=== PATIENT | female | born 1940 | race Caucasian/White ===

== ENCOUNTER 2021-09-08 10:09 | Observation (INO) | payer MEDICARE, BC, SELFPAY ==
[2021-09-08] VITALS (7 sets, daily range): BP systolic 135–151; BP diastolic 58–77; PULSE 69–81; RESP 16–21; TEMP 36–36.8; O2SAT 97–98
--- NOTE | 2021-09-08 | ECHO_ITS ---
Patient Info Name: Janis Osborne Age: 81 years : 1940 Gender: Female Ht: 64 in Wt: 145 lbs BSA: 1.73 m2 HR: 88 bpm BP: 149 / 77 mmHg Heart Rhythm: Paced Technical Quality: Good Exam Date: 09/08/2021 12:41 PM Exam Location: [facility] Room: 8[facility] Patient Status: Outpatient Admit Date: 09/08/2021 Staff Ordering Physician: Ivet Rebolledo MD Obedience Trainer: Chantelle Frye RDCS Attending Provider: Juliane Buck M.A., MD Referring Physician: Kesha REED; Exam Type: CA echo doppler color flow Study Info Indications - DYSPNEA ELEVATED BNP Complete two-dimensional, color flow and Doppler transthoracic echocardiogram is performed. Summary 1. Complete two-dimensional, color flow and Doppler transthoracic echocardiogram is performed. 2. Normal left ventricular size with moderate concentric left ventricular hypertrophy. Good systolic function of all segments with an ejection fraction of 60-65%. No segmental wall motion abnormalities. Grade 2 diastolic dysfunction is noted. 3. Left atrial chamber dimension is severely enlarged. 4. Right atrial chamber dimension is mildly enlarged. 5. There is mild aortic valve calcification without stenosis. 6. There is mild mitral valve regurgitation. 7. There is mild tricuspid valve regurgitation. 8. Moderate pulmonary hypertension, estimated pulmonary arterial systolic pressure is 52 mmHg. 9. Paced rhythm. Left Ventricle Left ventricular chamber dimension is normal. Left ventricular systolic function is normal, estimated at 60-65%. There is moderately increased left ventricular wall thickness. Left ventricular septal wall motion is normal. The left ventricular diastolic function is grade II diastolic dysfunction. Right Ventricle Right ventricular chamber dimension is normal. Right ventricular systolic function is normal. Linear artifact in right ventricle suggestive of catheter(s), pacemaker lead(s), or ICD lead(s). Left Atria Left atrial chamber dimension is severely enlarged. Right Atria Right atrial chamber dimension is mildly enlarged. Aortic Valve The aortic valve is trileaflet. There is no aortic valve sclerosis. There is no aortic valve stenosis. There is no aortic valve regurgitation. There is mild aortic valve calcification without stenosis. Pulmonic Valve The pulmonic valve is normal. There is no pulmonic valve stenosis. There is no pulmonic regurgitation. Mitral Valve The mitral valve has thickened leaflets. There is no mitral valve stenosis. There is mild mitral valve regurgitation. There is mild mitral valve calcification. Tricuspid Valve The tricuspid valve leaflets are normal. There is no significant tricuspid valve stenosis. There is mild tricuspid valve regurgitation. Moderate pulmonary hypertension, estimated pulmonary arterial systolic pressure is 52 mmHg. Pericardium/Pleural The pericardium appears normal. There is no pericardial effusion. Inferior Vena Cava Normal inferior vena cava with >50% collapse upon inspiration consistent with Empty right atrial pressure, 10 mmHg. Aorta The aortic root size at the sinus of Valsalva is normal. The prox ascending aorta size is normal. Left Ventricular Outflow Tract Name Value Normal LVOT 2D -------
--- NOTE | ~2021-09-08 | US_ITS ---
EXAMINATION: US abdomen limited EXAM DATE: 09/09/2021 09:20 INDICATION: Elevated liver function tests. TECHNIQUE: Multiple grayscale and Doppler images of the abdomen right upper quadrant were obtained (b y a technologist who performed the scan) and subsequently reviewed. There is no prior study for libra de la cruz. FINDINGS: The pancreatic head and body are normal in appearance. The pancreatic tail is not visualized. The l iver has normal echogenicity and contour. There are no focal liver lesions identified. There is no evidence of intrahepatic biliary duct dilation. Portal venous flow was seen in the hepatopedal, nor mal direction and has normal Doppler waveform. No right-sided hydronephrosis. Right renal cysts. Common bile duct measures 3 mm, which is normal. The gallbladder wall is borderline wall thickening, with expected amount of distention. No sonographic evidence of pericholecystic fluid. There is chol elithiasis. Technologist performing exam reports patient did not demonstrate sonographic Enriquez's s ign. Please note that this sign is less reliable in patients who have received pain medication. IMPRESSION: Borderline gallbladder wall thickness without additional suspicious findings. Differentia l diagnosis includes interstitial edema, chronic liver disease or chronic cholecystitis. Reviewed, dictated and finalized at location A. SERVICES COORDINATOR IMPRESSION: Borderline gallbladder wall thickness without additional suspicious findings. Differential diagnosis includes interstitial edema, chronic liver di sease or chronic cholecystitis.
--- NOTE | ~2021-09-08 | XR_ITS ---
XR chest 2V 09/08/2021 11:13 Indication: Shortness of breath Procedure: PA and lateral views of the chest Comparison: No prior studies for comparison. Findings: Borderline heart size. Pacemaker leads are in expected position. There is subsegmental atel ectasis of the left mid thorax. No focal air space disease, pulmonary edema, pleural effusion or susp ected pneumothorax. There is moderate thoracic spondylosis. No acute osseous abnormality. Impression: 1: Subsegmental atelectasis left midlung. Reviewed, dictated and finalized at location B. IGERATOR ROOM CLERK Impression: 1: Subsegmental atelectasis left midlung.
--- NOTE | 2021-09-08 10:18 | ED.SOB ---
HPI - SOB/Dyspnea General Chief Complaint: Shortness of Breath/Dyspnea Stated Complaint: SOB Time Seen by Provider: 09/08/21 10:18 Source: patient Mode of arrival: ambulatory Limitations: no limitations History of Present Illness HPI Narrative: Patient is an 81-year-old female with a history of atrial fibrillation, anticoagulated on Xarelto, hypertension, pacemaker, coronary artery disease, presenting for evaluation of shortness of breath. Patient states that she has had increasing shortness of breath over the past 4 days. Initially shortness of breath was only with exertion, has worsened over the past day. Patient denies any chest pain. She does report a chest heaviness. No neck pain, back pain, fever, chills, productive cough. No recent illnesses. No recent sick contacts. No rhinorrhea, congestion, sore throat. Patient reports bilateral lower extremity edema greater on the right when compared to the left. 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 Barrientos at [facility], has been reestablished with Dr. Zuluaga but has only seen this balloon design printer once and is looking to re establish at this point. Patient's pacemaker is a [employer]tr[employer] device. Related Data Home Medications Medication Instructions Recorded Confirmed glipizide 5 mg BID 09/08/21 latanoprost 1 drp DAILY 09/08/21 lisinopril 20 mg DAILY 09/08/21 metformin 500 mg BID 09/08/21 metoprolol tartrate 100 mg BID 09/08/21 pioglitazone 15 mg DAILY 09/08/21 rivaroxaban [Xarelto] 15 mg DAILY 09/08/21 simvastatin 10 mg DAILY 09/08/21 tramadol 50 mg PRN 09/08/21 Allergies Allergy/AdvReac Type Severity Reaction Status Date / Time No Known Allergies Allergy Verified 09/08/21 11:50 Review of Systems Review of Systems: CONSTITUTIONAL: Denies fever, chills, or sweats. EYES: Denies visual changes, redness, or discharge. ENT: Denies rhinorrhea, congestion, sore throat, or otalgia. CARDIOVASCULAR: Denies chest pain, reports chest heaviness, denies palpitations. Reports bilateral lower extremity edema RESPIRATORY: Reports shortness of breath, denies cough GASTROINTESTINAL: Denies abdominal pain, nausea, vomiting, or diarrhea. GENITOURINARY: Denies dysuria or hematuria. SKIN: Denies rash or itching. MUSCULOSKELETAL: Denies back pain, joint pain, or myalgia. NEUROLOGIC: Denies headache, numbness, or weakness. [facility] Social History Social History (Updated 09/08/21 @ 10:35 by Ivet Rebolledo MD) Smoking status: Never smoker Alcohol intake: never Substance use: never Gender identity (if verbalized by the patient): Female Exam Narrative: GENERAL: Awake, alert, conversant HEAD: Normocephalic, atraumatic. EYES: PERRLA and EOMI. ENT: Nares clear, no rhinorrhea or epistaxis. Mucous membranes moist. NECK: Supple. CHEST: No significant respiratory distress, patient is mildly tachypneic, able to speak in full sentences, does have to pause to take a deep breath throughout. No wheezing. No chest wall tenderness. HEART: Regular rate, sinus rhythm ABDOMEN:Non distended, non tender EXTREMITIES: Normal range of motion. Bilateral pitting edema 1+ to the mid shins, no calf tenderness, erythema, edema. SKIN: Warm, dry, no rash. NEURO:No focal deficits. 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 No other significant events. Patient is in atrial fibrillation. Vital Signs Vital signs: Vital Signs Temperature 36.4 C 09/08/21 10:13 Pulse Rate 81 09/08/21 10:13 Respiratory Rate 18 09/08/21 10:13 Blood Pressure 146/77 H 09/08/21 10:13 Pulse Oximetry 97 09/08/21 10:13 Temperature 36.4 C 09/08/21 10:13 Pulse Rate 69 09/08/21 11:49 Respiratory Rate 20 09/08/21 11:49 Blood Pressure 143/59 H 09/08/21 11:49 Pulse Oximetry 98 09/08/21 11:49 MDM - SOB/Dyspnea MDM Narrative Medical decision jean
--- NOTE | 2021-09-08 10:19 | ECG_ITS ---
Measurements Intervals [place] Rate: 89 P: [place]: 0 QRS: -11 QRSD: 82 T: 269 QT: 346 QTc: 423 Interpretive Statements ATRIAL FIBRILLATION VENTRICULAR PREMATURE COMPLEX CANNOT RULE OUT SEPTAL INFARCT, AGE INDETERMINATE CONSIDER INFERIOR INFARCT, AGE INDETERMINATE ST-T WAVE ABNORMALITY IN ANTEROLATERAL LEADS- CONSIDER ISCHEMIA BASELINE ARTIFACT- I, II, III, AVR, AVF, V6 ABNORMAL ECG Electronically Signed On 09-08-2021 11:20:41 GATE AGENT by Johnny Rodriguez D.O.
[2021-09-08 10:34] LABS: Basophils Absolute Auto 0.1 K/mm3 (0.0-0.1); Basophils Percent Auto 0.6 % (0.2-1.2); Eosinophils Absolute Auto 0.3 K/mm3 (0-0.3); Eosinophils Percent Auto 1.8 % (0-4.4); Hematocrit 35.9 % (37.0-47.0); Immature Granulocyte Absolute 0.05 K/mm3 (0.00-0.031); Immature Granulocyte Percent A 0.3 % (0-0.5); Lymphocytes Absolute Auto 1.46 K/mm3 (0.9-3.2); Lymphocytes Percent Auto 8.8 % (18.3-44.2); Mean Corpuscular HGB Conc 30.6 g/dl (32-36); Mean Corpuscular Hemoglobin 31.4 pg (26-34); Mean Corpuscular Volume 102.6 fl (80-100); Mean Platelet Volume 10.1 fl (7.4-10.4); Monocytes Absolute Auto 1.4 K/mm3 (0.1-0.6); Monocytes Percent Auto 8.1 % (2.6-8.5); Neutrophils Absolute Auto 13.4 K/mm3 (1.3-6.7); Neutrophils Percent Auto 80.4 % (45.5-73.1); Nucleated Red Blood Cells Perc 0.1 % (0.0-0.2); Platelet Count Result 305 k/mm3 (150-375); Red Cell Distribution Width 15.4 % (11.5-14.5); White Blood Count 16.7 K/mm3 (4.5-10.0)
[2021-09-08 10:43] LABS: Alanine Aminotransferase 52 U/L (4-35); Albumin Level 4.4 g/dL (3.5-5.1); Alkaline Phosphatase 59 U/L (38-126); Anion Gap 12 mmol/L (8-16); Aspartate Amino Transferase 84 U/L (14-36); Bilirubin,Total 0.7 mg/dL (0.2-1.3); Blood Urea Nitrogen 28 mg/dL (7-17); Calcium 9.7 mg/dL (8.4-10.2); Carbon Dioxide 21 mmol/L (22-30); Chloride 108 mmol/L (98-107); Estimated CRCL calculation 31 ml/min; Estimated Glomerular Filt Rate 48; Glucose 179 mg/dL (65-110); INR 2.1; Potassium 4.8 mmol/L (3.4-5.0); Prothrombin Time 23.1 Seconds (11.1-14.7); Sodium 141 mmol/L (137-145)
[2021-09-08 10:44] LABS: Partial Thromboplastin Time 35.4 SECONDS (22.3-36.8)
[2021-09-08 10:54] LABS: NT Pro B Type Natriuretic Pept 6190 pg/mL (5-100); Troponin I < 0.012 ng/mL (0.000-0.034)
[2021-09-08 11:48] LABS: D Dimer 0.37 ug/mL (<0.48)
--- NOTE | 2021-09-08 12:08 | PC.NURSE ---
Tray ordered for pt
[2021-09-08] MEDS: FUROSEMIDE INJ 40 MG/4 ML VIAL 20 MG IV PUSH (12:11)
--- NOTE | 2021-09-08 13:35 | PM.IMHP ---
H&P: HPI History of Present Illness Date/Time: 09/08/21 13:35 Chief Complaint: Shortness of breath. Narrative: This is an 81-year old female smoker with with hypertension, hyperlipidemia, diabetes, and atrial fibrillation status post pacemaker insertion on long-term anticoagulation who presented to the emergency department earlier today from home for evaluation of shortness of breath. She has been feeling more tired over the past couple of weeks and seems to be getting winded with day-to-day activities. Her daughter goes on to say that the family have noticed however that she has seem to be more out of breath over the past 8 to 9 months. In any regard this morning she was supposed to go get her hair done and she did not go because she was feeling so breathless. She has noticed some mild lower extremity edema developing over the last couple of weeks but other than that she has no other significant symptoms. Specifically she denies syncope, near syncope, fever, cold and flu symptoms, chest pain, pleuritic pain, orthopnea, PND, nausea, vomiting, and sweats. She has no history of coronary artery disease, congestive heart failure, asthma, or COPD. No sick contacts. Review of Systems Review of Systems: Twelve systems were reviewed. She has lost about 20 lb in the last year unintentionally. No history of malignancy. She has been having increasing pain in her left knee due to osteoarthritis. She has a dry cough which is chronic and unchanged. No diarrhea. No dysuria. No history of venous thromboembolism. She denies dysphagia and concerns for aspiration. Except as documented, all other systems were reviewed and are negative. [facility] Past Medical History Medical History (Updated 09/08/21 @ 20:08 by Jyotsna Dee PA-C) Atrial fibrillation Glaucoma Hyperlipidemia Hypertension Tobacco dependence Type 2 diabetes mellitus Surgical History Surgical History (Updated 09/08/21 @ 19:57 by Jyotsna Dee PA-C) History of laparoscopy For ectopic . History of right knee joint replacement Status post placement of cardiac pacemaker 2011? Dr. Floyd Willams Family History Family History Father Heart disease possible heart disease; of sudden cardiac Carotid arterial disease Peripheral vascular disease Mother Jem-Creutzfeldt disease COD age 64 Social History Social History (Updated 09/08/21 @ 19:58 by Jyotsna Dee PA-C) Social History: Surrogate decision maker: Huong Morin, daughter. Code status: Full code. 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 Smoking packs per day: 0.5 Smoking cigarettes per day: 10.0 Years smoked: 60 Smoking pack-years: 30.00 Smoking status: Current some day smoker Tobacco type: cigarettes Smoking end date: 09/06/21 Alcohol intake: current Drinks per week: 1 Substance use: never Additional living arrangements comments: The patient lives alone in [place]. Additional occupation/education comments: Retired. Meds Home Medications and Allergies Home Medications Medication Instructions Recorded Confirmed Type glipizide 5 mg BID 09/08/21 09/08/21 History latanoprost 1 drp DAILY 09/08/21 09/08/21 History lisinopril 20 mg DAILY 09/08/21 09/08/21 History metformin 500 mg BID 09/08/21 09/08/21 History metoprolol tartrate 100 mg BID 09/08/21 09/08/21 History pioglitazone 15 mg DAILY 09/08/21 09/08/21 History rivaroxaban [Xarelto] 15 mg DAILY 09/08/21 09/08/21 History simvastatin 10 mg DAILY 09/08/21 09/08/21 History tramadol [Ultram] 50 mg PO Q6H PRN 09/08/21 09/08/21 History Allergies Allergy/AdvReac Type Severity Reaction Status Date / Time No Known Allergies Allergy Verified 09/08/21 11:50 Vital Signs Vital Signs - 24 hr 09/08/21 10:13 09/08/21 11:49 Temperature 97.6 F Pulse Rate
--- NOTE | 2021-09-08 16:59 | ADMGEN ---
This patient, Janis Osborne, was admitted to Medical Room 341-01. Patient/family oriented to hospital policies and general routines including ID bracelet, bed and alarms, visiting hours, pain management, procedures, bathroom and other care routines, personal items, smoking policy, room service/diet, and visiting hours. Information on how to activate the Rapid Response Team has been discussed. Patient/Family are encouraged to report perceived risks to care and to ask questions if they do not understand what they are told or what they should do. Patient sitting up in chair with no complaints at this time. Family at bedside. Will continue to monitor.
--- NOTE | 2021-09-08 18:59 | PM.CNCAR ---
Assessment and Plan Assessment and plan (1) Acute diastolic CHF (congestive heart failure): Code(s): I50.31 - Acute diastolic (congestive) heart failure Status: Acute Assessment and Plan: Patient has had edema, RANGEL, fatigue and presents with an elevated proBNP consistent with acute diastolic heart failure. Received IV furosemide in the emergency room with some improvement. Echo EF 60-65% with diastolic dysfunction and mild valve disease. Blood pressure here is not at goal; add spironolactone 25 mg daily. Add Jardiance 10 mg daily for heart failure with preserved ejection fraction ( Emperer-Preserved Trial) another dose of IV furosemide tomorrow then probably home tomorrow with p.o. furosemide BMP in a.m. (2) Persistent atrial fibrillation: Code(s): I48.19 - Other persistent atrial fibrillation Status: Acute Assessment and Plan: has atrial fibrillation, probably persistent, rate controlled, anticoagulated with Xarelto. (3) Pacemaker: Code(s): Z95.0 - Presence of cardiac pacemaker Status: Acute Assessment and Plan: Followed by Dr. Zuluaga (4) Hypertension: Code(s): I10 - Essential (primary) hypertension Status: Acute Assessment and Plan: Running a little high today (5) Type 2 diabetes mellitus: Code(s): E11.9 - Type 2 diabetes mellitus without complications Status: Acute Assessment and Plan: Well-controlled per pt. (6) Elevated WBC count: Code(s): D72.829 - Elevated white blood cell count, unspecified Status: Acute Assessment and Plan: Of uncertain etiology; no obvious infection. History of Present Illness History of Present Illness Consult date/time: 09/08/21 18:59 Requesting physician: Jyotsna Dee PA-C Consult reason: congestive heart failure Reason For Visit: abdominal pain,elevated alk phos,symptomatic alejandro Narrative: Janis Cuadra is an 81 y.o. female Whom we were asked to see at the request of the hospitalist with complaints of shortness of breath and possible CHF. She previously was followed by Dr. Barrientos in [place] for Her pacemaker and atrial fibrillation. Ms. Cuadra tells me she has had unusually increased fatigue over the last month or so such that walking or going to the store was a chore. She has had increased shortness of breath and fatigue and not feeling well for 3 or 4 days, tired with no energy. She has had some lower extremity edema for 2 weeks and increase of her dry cough. This morning she went to get her hair colored and just felt so tired she could not manage and drove around the block and came home. There has been no chest pain, PND, orthopnea, fevers. Received a dose of IV Lasix in the emergency room. The patient has had atrial fibrillation for about 9 years and a Medtronic pacemaker placed around [address] Barrient[address], now followed by . last checked a couple months ago. She has no history of any coronary disease or cardiac catheterization. She states her hypertension, diabetes, and elevated cholesterol are well controlled. Review of Systems Review of Systems: unintentional 20 lb weight loss over the last 6-8 months. Constitutional: Constitutional: Reports fatigue, Reports lethargy and Reports weakness Eyes: Eyes: Reports no additional eye complaints ENT: Denies Normal hearing present Comments: wears hearing aid Cardiovascular: Cardiovascular: Denies chest pain, Reports pedal edema, Reports leg edema, Denies lightheadedness and Denies palpitations Respiratory: Respiratory: Reports chest congestion, Reports cough and Reports dyspnea on exertion Gastrointestinal: Gastrointestinal: Denies abdominal pain and Denies hematochezia Genitourinary: Genitourinary: Denies hematuria Musculoskeletal: Musculoskeletal: Reports arthralgias ( left kne
[2021-09-08 20:57] LABS: Hemoglobin A1C 6.1 % (<5.7)
[2021-09-08 21:09] LABS: Iron 42 ug/dL (37-170)
[2021-09-08 21:19] LABS: Percent Iron Saturation 14 % (20-50)
[2021-09-08 21:42] LABS: Folic Acid 7.9 ng/mL (2.76->20)
[2021-09-08 21:42] LABS: Hepatitis B Surface Antigen Negative (Negative)
[2021-09-08 21:47] LABS: HAV RESULT Negative (Negative); Hepatitis B Core IgM Result Negative (Negative)
[2021-09-08] MEDS: METOPROLOL TARTRATE 50 MG TAB 100 MG BY MOUTH (21:56)
[2021-09-08] MEDS: LATANOPROST 0.005% OP SOLN 2.5 ML BTL 1 DROP EACH EYE (21:57)
[2021-09-08 22:12] LABS: Glucose Point of Care 110 mg/dl (65-105)
[2021-09-09] VITALS (10 sets, daily range): BP systolic 122–142; BP diastolic 53–59; PULSE 64–85; RESP 16–18; TEMP 36.3–37.1; O2SAT 97–100
[2021-09-09 00:45] LABS: Hepatitis C Virus Antibody Negative (Negative)
[2021-09-09] MEDS: FUROSEMIDE INJ 40 MG/4 ML VIAL 20 MG IV PUSH (06:51)
[2021-09-09 07:18] LABS: Alanine Aminotransferase 42 U/L (4-35); Albumin Level 3.9 g/dL (3.5-5.1); Alkaline Phosphatase 50 U/L (38-126); Anion Gap 8 mmol/L (8-16); Aspartate Amino Transferase 36 U/L (14-36); Bilirubin,Total 0.6 mg/dL (0.2-1.3); Blood Urea Nitrogen 25 mg/dL (7-17); Carbon Dioxide 25 mmol/L (22-30); Chloride 104 mmol/L (98-107); Estimated CRCL calculation 31 ml/min; Estimated Glomerular Filt Rate 48; Glucose 98 mg/dL (65-110); Magnesium 1.7 mg/dL (1.6-2.3); Potassium 3.8 mmol/L (3.4-5.0); Sodium 137 mmol/L (137-145)
[2021-09-09 07:49] LABS: Glucose Point of Care 96 mg/dl (65-105)
[2021-09-09] MEDS: SIMVASTATIN 10 MG TABLET BY MOUTH (09:29)
[2021-09-09] MEDS: SPIRONOLACTONE 25 MG TABLET PO (09:29)
[2021-09-09] MEDS: PIOGLITAZONE HCL 15 MG TAB PO (09:29)
[2021-09-09] MEDS: EMPAGLIFLOZIN 10 MG TABLET PO (09:29)
[2021-09-09] MEDS: lisinopriL 20 MG TABLET BY MOUTH (09:30)
[2021-09-09] MEDS: METOPROLOL TARTRATE 50 MG TAB 100 MG BY MOUTH ×2 (09:30→20:43)
[2021-09-09 11:41] LABS: Glucose Point of Care 221 mg/dl (65-105)
[2021-09-09] MEDS: glipiZIDE 5 MG TABLET BY MOUTH (11:57)
--- NOTE | 2021-09-09 14:30 | PM.IMPN ---
Progress Note: A&P Assessment and Plan (1) Shortness of breath: Code(s): R06.02 - Shortness of breath Status: Acute Assessment and Plan: Picture consistent with congestive heart failure given lower extremity edema, dyspnea on exertion, and fatigue in the setting of elevated proBNP. She has had a pretty robust response to IV Lasix given in the emergency department thus will not schedule any further IV Lasix at this time. Echocardiogram has been obtained and is pending. Pulmonary embolism is unlikely as she is on chronic anticoagulation. Dr. Flowers has been consulted and her input is appreciated. (2) Elevated LFTs: Code(s): R79.89 - Other specified abnormal findings of blood chemistry Status: Acute Assessment and Plan: Mild elevation in AST and ALT check hepatitis panel negative right upper quadrant ultrasound Borderline gallbladder wall thickness without additional suspicious findings. Differential diagnosis includes interstitial edema, chronic liver disease or chronic cholecystitis. (3) Renal failure: Code(s): N19 - Unspecified kidney failure Status: Acute Assessment and Plan: Baseline renal function is unknown, she gets majority of her care in [place]. Records requested from primary care provider for review. Monitor renal status closely while diuresing. (4) Macrocytic anemia: Code(s): D53.9 - Nutritional anemia, unspecified Status: Acute Assessment and Plan: Anemia labs show iron 42, TIBC 305,% saturation 14, ferritin 102, B12 338, folate 7.9, TSH 2.380, Everything seems to be in range Continue to monitor (5) Atrial fibrillation: Code(s): I48.91 - Unspecified atrial fibrillation Status: Acute Assessment and Plan: Working appropriately Paced rhythm Continue Xarelto Continue metoprolol. (6) Hypertension: Code(s): I10 - Essential (primary) hypertension Status: Acute Assessment and Plan: Current blood pressure 142/53 Blood pressures were reviewed and there is room for better control. Will continue to trend for now and increase antihypertensives if indicated. The should improve with diuresis. (7) Hyperlipidemia: Code(s): E78.5 - Hyperlipidemia, unspecified Status: Acute Assessment and Plan: Continue statin, AST and ALT are only mildly elevated. (8) Type 2 diabetes mellitus: Code(s): E11.9 - Type 2 diabetes mellitus without complications Status: Acute Assessment and Plan: Continue pioglitazone. Initiate sliding scale insulin, Accu-Cheks, and hypoglycemic protocol. hemoglobin A1c 6.1 (9) Tobacco dependence: Code(s): F17.200 - Nicotine dependence, unspecified, uncomplicated Status: Acute Assessment and Plan: Smoking cessation is imperative in was discussed. The patient seems motivated in told me that she has instructed her daughter to throw out her cigarettes. (10) Leukocytosis: Code(s): D72.829 - Elevated white blood cell count, unspecified Status: Acute Assessment and Plan: She gives no signs or symptoms to suggest underlying infection. Monitor. Will check labs again tomorrow (11) Congestive heart failure: Code(s): I50.9 - Heart failure, unspecified Status: Acute Assessment and Plan: Clinical picture suggest such. Plan is detailed above. Echo shows grade 2 diastolic dysfunction with an EF of 60 65% Diastolic heart failure exacerbation Time Spent With Patient Time with patient: 25 - 35 minutes Subjective Date/time seen: 09/09/21 14:30 Interval history: Date/Time: 09/08/21 13:35 Narrative: This is an 81-year old female smoker with with hypertension, hyperlipidemia, diabetes, and atrial fibrillation status post pacemaker insertion on long-term anticoagulation who presented to the emergency department earlier today from home for evaluation of shortnes
--- NOTE | 2021-09-09 14:58 | PM.PNCARD ---
Progress Note: A&P Assessment and Plan (1) Acute diastolic CHF (congestive heart failure): Code(s): I50.31 - Acute diastolic (congestive) heart failure Status: Acute Assessment and Plan: Patient has had edema, RANGEL, fatigue and presents with an elevated proBNP consistent with acute diastolic heart failure. Echo EF 60-65% with diastolic dysfunction and mild valve disease. Blood pressure here is not at goal; spironolactone added. Add Jardiance 10 mg daily for heart failure with preserved ejection fraction ( Emperer-Preserved Trial) Shift to p.o furosemide 40mg daily BMP in a.m. Home tomorrow if she remains stable (2) Persistent atrial fibrillation: Code(s): I48.19 - Other persistent atrial fibrillation Status: Acute Assessment and Plan: has atrial fibrillation, probably persistent, rate controlled, anticoagulated with Xarelto. (3) Pacemaker: Code(s): Z95.0 - Presence of cardiac pacemaker Status: Acute Assessment and Plan: Followed by Dr. Zuluaga (4) Hypertension: Code(s): I10 - Essential (primary) hypertension Status: Acute Assessment and Plan: Running a little high. Spironolactone added. Continue to monitor. Outpatient med adjustments (5) Type 2 diabetes mellitus: Code(s): E11.9 - Type 2 diabetes mellitus without complications Status: Acute Assessment and Plan: Well-controlled per pt. (6) Elevated WBC count: Code(s): D72.829 - Elevated white blood cell count, unspecified Status: Acute Assessment and Plan: Of uncertain etiology; no obvious infection. Subjective Date/time seen: 09/09/21 14:59 Cardiology follow up for CHF Date of service 09/09/2021: Feeling much better today - notes that her breathing has significantly improved. She has improvement in her swelling. No complaints today. She's been up out of the bed with no dizziness, difficult breathing. She would like to transition her outpatient cardiology care to our practice. I will arrange this. Review of Systems Constitutional: Constitutional: Reports fatigue, Reports lethargy and Reports weakness Eyes: Eyes: Reports no additional eye complaints ENT: Denies Normal hearing present Cardiovascular: Cardiovascular: Denies chest pain, Reports pedal edema, Reports leg edema, Denies lightheadedness, Denies palpitations and Reports dyspnea on exertion Respiratory: Respiratory: Reports chest congestion, Reports cough and Reports dyspnea on exertion Gastrointestinal: Gastrointestinal: Denies abdominal pain and Denies hematochezia Genitourinary: Genitourinary: Denies hematuria Musculoskeletal: Musculoskeletal: Reports arthralgias ( left knee) Integumentary/Breasts: Skin/Breast: Denies rash Neurologic: Reports system reviewed and no additional complaints, except as documented, Denies Normal hearing present and Reports weakness Psychiatric: Psychiatric: Reports no additional psychiatric complaints Endocrine: Endocrine: Reports fatigue and Denies palpitations Exam Narrative: Very pleasant elderly lady lying comfortably in bed. Alert and oriented. Const: General: comfortable and no acute distress HENMT: General nose exam: no epistaxis Mouth: Yes moist mucous membranes Eyes: EOM: EOMs intact bilaterally Neck: Neck: supple and no JVD Thyroid: thyroid normal Carotids: no bruits Lymphatic: lymphadenopathy not noted Chest: Chest palpation & inspection: normal inspection of the chest Resp: Effort & Inspection: normal respiratory effort Auscultation: clear to auscultation bilaterally and diminished lung sounds Cardio: Rate: regular rate Rhythm: regular rhythm Heart sounds: no gallops, no murmurs and no rubs GI: Inspection: non-distended GI Palp: Yes Soft to palpation Skin: General skin exam: normal color and no rash
[2021-09-09 16:42] LABS: Glucose Point of Care 70 mg/dl (65-105)
[2021-09-09] MEDS: RIVAROXABAN 15 MG TABLET BY MOUTH (17:44)
[2021-09-09 20:13] LABS: Glucose Point of Care 133 mg/dl (65-105)
[2021-09-09] MEDS: LATANOPROST 0.005% OP SOLN 2.5 ML BTL 1 DROP EACH EYE (20:43)
[2021-09-10] VITALS: PULSE 68
[2021-09-10 04:00] VITALS: PULSE 60
[2021-09-10 05:53] VITALS: BP 133/59; PULSE 71; RESP 18; TEMP 36.4; O2SAT 99
[2021-09-10 06:12] LABS: Basophils Absolute Auto 0.1 K/mm3 (0.0-0.1); Basophils Percent Auto 1.1 % (0.2-1.2); Eosinophils Absolute Auto 0.4 K/mm3 (0-0.3); Hematocrit 33.9 % (37.0-47.0); Hemoglobin 10.6 g/dL (12.0-15.0); Immature Granulocyte Absolute 0.02 K/mm3 (0.00-0.031); Immature Granulocyte Percent A 0.3 % (0-0.5); Lymphocytes Absolute Auto 1.55 K/mm3 (0.9-3.2); Lymphocytes Percent Auto 22.2 % (18.3-44.2); Mean Corpuscular HGB Conc 31.3 g/dl (32-36); Mean Corpuscular Hemoglobin 31.5 pg (26-34); Mean Corpuscular Volume 100.6 fl (80-100); Monocytes Absolute Auto 0.9 K/mm3 (0.1-0.6); Monocytes Percent Auto 12.3 % (2.6-8.5); Neutrophils Absolute Auto 4.1 K/mm3 (1.3-6.7); Neutrophils Percent Auto 58.1 % (45.5-73.1); Nucleated Red Blood Cells Perc 0.3 % (0.0-0.2); Platelet Count Result 283 k/mm3 (150-375); Red Blood Count 3.37 M/mm3 (4.2-5.4); Red Cell Distribution Width 15.4 % (11.5-14.5)
[2021-09-10 06:23] LABS: Alanine Aminotransferase 32 U/L (4-35); Albumin Level 3.9 g/dL (3.5-5.1); Alkaline Phosphatase 50 U/L (38-126); Anion Gap 10 mmol/L (8-16); Aspartate Amino Transferase 25 U/L (14-36); Bilirubin,Total 0.4 mg/dL (0.2-1.3); Blood Urea Nitrogen 32 mg/dL (7-17); Calcium 8.9 mg/dL (8.4-10.2); Carbon Dioxide 25 mmol/L (22-30); Chloride 104 mmol/L (98-107); Estimated CRCL calculation 27 ml/min; Estimated Glomerular Filt Rate 39; Glucose 121 mg/dL (65-110); Magnesium 2.1 mg/dL (1.6-2.3); Potassium 3.9 mmol/L (3.4-5.0); Sodium 139 mmol/L (137-145)
[2021-09-10 08:00] VITALS: PULSE 93
[2021-09-10 08:08] LABS: Glucose Point of Care 131 mg/dl (65-105)
[2021-09-10] MEDS: SPIRONOLACTONE 25 MG TABLET PO (08:22)
[2021-09-10] MEDS: EMPAGLIFLOZIN 10 MG TABLET PO (08:22)
[2021-09-10] MEDS: METOPROLOL TARTRATE 50 MG TAB 100 MG BY MOUTH (08:22)
[2021-09-10] MEDS: lisinopriL 20 MG TABLET BY MOUTH (08:22)
[2021-09-10] MEDS: FUROSEMIDE 40 MG TABLET PO (08:22)
[2021-09-10] MEDS: SIMVASTATIN 10 MG TABLET BY MOUTH (08:22)
--- NOTE | 2021-09-10 09:00 | PM.DS ---
DS: Admitting Diagnosis Discharge Date Date of Service: 09/10/21 @ 0900 Admitting Diagnosis New onset diastolic heart failure exacerbation DS: Discharge Diagnosis Discharge Diagnosis (1) Shortness of breath: Code(s): R06.02 - Shortness of breath Status: Acute Assessment and Plan: Picture consistent with congestive heart failure given lower extremity edema, dyspnea on exertion, and fatigue in the setting of elevated proBNP. She has had a pretty robust response to IV Lasix given in the emergency department thus will not schedule any further IV Lasix at this time. Echocardiogram has been obtained and is pending. Pulmonary embolism is unlikely as she is on chronic anticoagulation. Dr. Flowers has been consulted and her input is appreciated. (2) Elevated LFTs: Code(s): R79.89 - Other specified abnormal findings of blood chemistry Status: Acute Assessment and Plan: Mild elevation in AST and ALT check hepatitis panel negative right upper quadrant ultrasound Borderline gallbladder wall thickness without additional suspicious findings. Differential diagnosis includes interstitial edema, chronic liver disease or chronic cholecystitis. (3) Renal failure: Code(s): N19 - Unspecified kidney failure Status: Acute Assessment and Plan: Baseline renal function is unknown, she gets majority of her care in [place]. Records requested from primary care provider for review. Monitor renal status closely while diuresing. (4) Macrocytic anemia: Code(s): D53.9 - Nutritional anemia, unspecified Status: Acute Assessment and Plan: Anemia labs show iron 42, TIBC 305,% saturation 14, ferritin 102, B12 338, folate 7.9, TSH 2.380, Everything seems to be in range Continue to monitor (5) Atrial fibrillation: Code(s): I48.91 - Unspecified atrial fibrillation Status: Acute Assessment and Plan: Working appropriately Paced rhythm Continue Xarelto Continue metoprolol. (6) Hypertension: Code(s): I10 - Essential (primary) hypertension Status: Acute Assessment and Plan: Current blood pressure 142/53 Blood pressures were reviewed and there is room for better control. Will continue to trend for now and increase antihypertensives if indicated. The should improve with diuresis. (7) Hyperlipidemia: Code(s): E78.5 - Hyperlipidemia, unspecified Status: Acute Assessment and Plan: Continue statin, AST and ALT are only mildly elevated. (8) Type 2 diabetes mellitus: Code(s): E11.9 - Type 2 diabetes mellitus without complications Status: Acute Assessment and Plan: Continue pioglitazone. Initiate sliding scale insulin, Accu-Cheks, and hypoglycemic protocol. hemoglobin A1c 6.1 (9) Tobacco dependence: Code(s): F17.200 - Nicotine dependence, unspecified, uncomplicated Status: Acute Assessment and Plan: Smoking cessation is imperative in was discussed. The patient seems motivated in told me that she has instructed her daughter to throw out her cigarettes. (10) Leukocytosis: Code(s): D72.829 - Elevated white blood cell count, unspecified Status: Acute Assessment and Plan: She gives no signs or symptoms to suggest underlying infection. Monitor. Will check labs again tomorrow (11) Congestive heart failure: Code(s): I50.9 - Heart failure, unspecified Status: Acute Assessment and Plan: Clinical picture suggest such. Plan is detailed above. Echo shows grade 2 diastolic dysfunction with an EF of 60 65% Diastolic heart failure exacerbation DS: Summary Hospital Course Hospital Course: Patient is an 81 year old female with a past medical history of DM, HTN, HLD that presented to the ED with complaints of shortness of breath. Patient stated that she was unable to walk short distances without being very short of gisselle
[2021-09-10 11:25] LABS: Glucose Point of Care 167 mg/dl (65-105)
[2021-09-10] MEDS: glipiZIDE 5 MG TABLET BY MOUTH (12:14)
== END 2021-09-10 13:44 | disposition home or self-care (01) ==
LOC: ANHED 12:14 → ANH3MED 16:17 → ANH2MED 09-13 16:28 → ANH3MED 09-13 16:28
PROVIDERS: Nurse Practitioner; Physician Assistant; Admitting Provider Internal Medicine; Emergency Provider Emergency Medicine; PCP Internal Medicine; Visit Provider Internal Medicine
DX: I11.0 Hypertensive heart disease with heart failure (principal); I50.31 Acute diastolic (congestive) heart failure; R06.02 Shortness of breath; D53.9 Nutritional anemia, unspecified; E78.5 Hyperlipidemia, unspecified; E11.9 Type 2 diabetes mellitus without complications; I48.91 Unspecified atrial fibrillation; F17.210 Nicotine dependence, cigarettes, uncomplicated; R79.89 Other specified abnormal findings of blood chemistry; R53.1 Weakness; R60.0 Localized edema; N19 Unspecified kidney failure; Z79.84 Long term (current) use of oral hypoglycemic drugs; Z79.01 Long term (current) use of anticoagulants; Z95.0 Presence of cardiac pacemaker; D72.829 Elevated white blood cell count, unspecified
CPT/HCPCS: 36415; 71046; 76705; 80048; 80053; 80074; 80076; 82607; 82728; 82746; 82948; 83036; 83540; 83550; 83735; 83880; 84443; 84484; 85025; 85380; 85610; 85730; 93005; 93306; 96374; 96376; 99285; A9270; G0378; J1940

== ENCOUNTER 2022-04-28 01:55 | Day surgery (SDC) | payer MEDICARE, BC, SELFPAY ==
[2022-04-28] VITALS (7 sets, daily range): BP systolic 144–179; BP diastolic 76–92; PULSE 78–93; RESP 14–25; TEMP 36.8; O2SAT 93–99; BMI 24.5
[2022-04-28 10:38] LABS: Basophils Absolute Auto 0.1 K/mm3 (0.0-0.1); Basophils Percent Auto 1.1 % (0.2-1.2); Eosinophils Percent Auto 0.5 % (0-4.4); Hematocrit 33.3 % (37.0-47.0); Immature Granulocyte Absolute 0.03 K/mm3 (0.00-0.031); Immature Granulocyte Percent A 0.4 % (0-0.5); Lymphocytes Absolute Auto 1.16 K/mm3 (0.9-3.2); Lymphocytes Percent Auto 15.8 % (18.3-44.2); Mean Corpuscular Hemoglobin 29.8 pg (26-34); Mean Corpuscular Volume 99.1 fl (80-100); Mean Platelet Volume 9.9 fl (7.4-10.4); Monocytes Percent Auto 13.8 % (2.6-8.5); Neutrophils Percent Auto 68.4 % (45.5-73.1); Platelet Count Result 323 k/mm3 (150-375); Red Blood Count 3.36 M/mm3 (4.2-5.4); Red Cell Distribution Width 16.1 % (11.5-14.5); White Blood Count 7.3 K/mm3 (4.5-10.0)
[2022-04-28 10:47] LABS: Anion Gap 10 mmol/L (8-16); Blood Urea Nitrogen 21 mg/dL (7-17); Calcium 9.6 mg/dL (8.4-10.2); Carbon Dioxide 27 mmol/L (22-30); Chloride 104 mmol/L (98-107); Estimated Glomerular Filt Rate 53; Glucose 111 mg/dL (65-110); Potassium 3.9 mmol/L (3.4-5.0); Sodium 141 mmol/L (137-145)
[2022-04-28 10:55] LABS: INR 1.2; Prothrombin Time 14.9 Seconds (11.1-14.7)
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
--- NOTE | 2022-04-28 11:52 | WPDMODSED ---
Moderate Sedation Note-Pt Data Patient Data Diagnosis: Pacemaker at BARBARA Present Complaint: pACER AT BARBARA Procedure to be performed/Plan: Concious sedation Generator change Allergies Allergy/AdvReac Type Severity Reaction Status Date / Time eluxadoline Allergy Severe Diarrhea Verified 04/28/22 11:42 pentazocine [From Talwin] Allergy Unknown Unknown Verified 04/28/22 11:44 Home Medications Medication Instructions Recorded Confirmed Type glipizide 5 mg tablet 5 mg BID 09/08/21 04/28/22 History latanoprost 0.005 % eye drops 1 drp DAILY 09/08/21 04/28/22 History lisinopril 20 mg tablet (Zestril) 20 mg DAILY 09/08/21 04/28/22 History metformin 500 mg tablet 500 mg BID 09/08/21 04/28/22 History metoprolol tartrate 100 mg tablet 100 mg BID 09/08/21 04/28/22 History pioglitazone 15 mg tablet (Actos) 15 mg DAILY 09/08/21 04/28/22 History rivaroxaban 15 mg tablet (Xarelto) 15 mg DAILY 09/08/21 09/08/21 History simvastatin 10 mg tablet 10 mg DAILY 09/08/21 04/28/22 History tramadol 50 mg tablet (Ultram) 50 mg PO Q6H PRN Pain 09/08/21 09/08/21 History spironolactone 25 mg tablet 25 mg PO QAM #30 tabs 09/10/21 Rx furosemide 40 mg tablet (Lasix) 40 mg PO DAILY 04/28/22 04/28/22 History Sedation/Anesthesia: No previous sedation/anesthesia problems (including family history). [facility] Past Medical History Medical History Atrial fibrillation Glaucoma Hyperlipidemia Hypertension Tobacco dependence Type 2 diabetes mellitus Surgical History Surgical History History of laparoscopy For ectopic . History of right knee joint replacement Status post placement of cardiac pacemaker 2011? Dr. Floyd Willams Family History Family History Father Heart disease possible heart disease; of sudden cardiac Carotid arterial disease Peripheral vascular disease Mother Jem-Creutzfeldt disease COD age 64 Social History Social History Social History: Surrogate decision maker: Huong Morin, daughter. Code status: Full code. 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 Smoking packs per day: 0.5 Smoking cigarettes per day: 10.0 Years smoked: 60 Smoking pack-years: 30.00 Smoking status: Current some day smoker Tobacco type: cigarettes Smoking end date: 09/06/21 Alcohol intake: current Drinks per week: 1 Substance use: never Additional living arrangements comments: The patient lives alone in [place]. Additional occupation/education comments: Retired. Mod Sed Physical Exam Physical Exam Pre Procedural Exam: Normal: Appearance, Eyes, Ears, Nose, Neck, Throat, Airway (dentures), Lungs, Heart Size, Heart Rate, Heart Rhythm, Neuro Exam, Abdomen, Liver, Spleen, Extremities and Skin (pacer incision well-healed) Hours since solid foods: 12 Hours since liquid intake: 12 Mallampati Classification: class II Internal Medicine - PN: Obj Da Vital Signs Vital Signs: Vital Signs - 24 hr 04/28/22 10:47 Temperature 98.2 F Pulse Rate 78 Respiratory Rate 14 Blood Pressure 144/92 H Pulse Oximetry 98 Oxygen Delivery Room Air Labs CBC & Chem 7: 04/28/22 10:22 04/28/22 10:22 Labs: Laboratory Results - last 24 hr 04/28/22 04/28/22 04/28/22 10:22 10:22 10:22 WBC 7.3 RBC 3.36 L Hgb 10.0 L Hct 33.3 L MCV 99.1 MCH 29.8 MCHC 30.0 L RDW 16.1 H Plt Count 323 MPV 9.9 Immature Gran % (Auto) 0.4 Neut % (Auto) 68.4 Lymph % (Auto) 15.8 L Flag[place] % (Auto) 13.8 H Eos % (Auto) 0.5 Baso % (Auto) 1.1 Lymph # (Auto) 1.16 [place] # (Auto) 1.0 H Eos # (Auto) 0.0 Baso # (Auto) 0.1 Abs Immat Gran (auto) 0.03
--- NOTE | 2022-04-28 12:43 | PM.OP ---
Procedure Note - Brief Procedure Note - Brief Date of procedure: 04/28/22 Pre-op diagnosis: aidan Post-op diagnosis: Same Procedure performed: Conscious sedation Pacemaker generator change Description of procedure: Uneventful generator change Surgeon: Edwige Flowers MD
--- NOTE | 2022-04-28 12:45 | P.OP_ITS ---
Procedure Note - Detailed Date of Procedure 04/28/22 Pre-op Diagnosis aidan Post-op Diagnosis Same Procedure Performed Conscious sedation Generator change Surgeon Edwige Flowers MD Indications Janis Osborne is an 82-year-old female with a history pacemaker implanted by Dr. Barrientos in 2011 for sick sinus syndrome, which has reached AIDAN and needs replacement.? She also has a history of hypertension, atrial fibrillation hyperlipidemia.? She has held her Eliquis for the last 2 days. Description of Procedure UNDERLYING RHYTHM: Atrial fib CONSCIOUS SEDATION: Assessment: The patient has no history of anesthesia problems. The oropharynx is clear. The patient was deemed to be a good candidate for conscious sedation. The patient had continuous hemodynamic and oximetric monitoring during the procedure. Start time: 1204 Completion time: 1240 Total conscious sedation time: 36 min Medications: Versed 2 mg and fentnyl 50 mcg IVP Trained observer: Donato Alvarez RN Outcome: The patient tolerated the procedure well with no complications. PROCEDURE: After informed consent, the patient is brought to the cleaner laboratory equipment and the right prepectoral area was prepped and draped in usual fashion. The patient was given a prophylactic antibiotic intravenously, Ancef 1 gm IVP. After conscious sedation as described above, the area was anesthetized with 1% lidocaine. A skin incision is made with the Plasma Blade and carried down to the pacing capsule which was also incised. Hemostasis is obtained using the Plasma Blade. The lead/s was/were freed from the underlying capsule and inspected and were found to be intact. The pulse generator was delivered from the pocket. The lead/s was/were disconnected from the existing device and reconnected to the new device. A gentle tug could not remove it/them. The device and lead/s was/were interrogated and found to be functioning a ppropriately. The area was copiously irrigated with antibiotic-containing solution. The device was replaced in the pocket. The subcutaneous tissues were closed in a two-layer fashion with interrupted 2 0 Vicryl sutures and the skin was closed in a continuous fashion using 4 0 Vicryl. The area was cleansed, an Aquacel dressing applied. The patient tolerated the procedure well with no complications. Estimated blood loss was negligible. THRESHOLD INFORMATION: Right ventricular lead: R-wave sensing 10.6 mV, impedance 490 Ohms, threshold 1.75 at 0.4 PROGRAMMED PARAMETERS: VVIR 60-110 Implants New pulse generator: Medtronic model W 3 DR01, serial [id number] Existing right atrial lead: Medtronic model 5076-45, serial [id number] [id number]/[id number] Existing right ventricular lead: Medtronic model 4092-52, serial [id number] [id number] implanted 04/27/2012 Explanted pulse generator: Medtronic SEDR01, serial NWL [id number] Estimated Blood Loss 3 Complications No immediate complications Condition Stable Disposition Observation
== END 2022-04-28 14:50 | disposition home or self-care (01) ==
PROVIDERS: PCP Internal Medicine; Visit Provider Internal Medicine Cardiovascular Disease
PROC: 0JPT0PZ Removal of Cardiac Rhythm Related Device from Trunk Subcutaneous Tissue and Fascia, Open Approach (ICD-10-PCS; CPT 33228; principal; 2022-04-28 11:30)
DX: Z45.010 Encounter for checking and testing of cardiac pacemaker pulse generator [battery] (principal); I10 Essential (primary) hypertension; I48.91 Unspecified atrial fibrillation; E78.5 Hyperlipidemia, unspecified; E11.9 Type 2 diabetes mellitus without complications; H40.9 Unspecified glaucoma; Z79.01 Long term (current) use of anticoagulants; Z79.84 Long term (current) use of oral hypoglycemic drugs; F17.210 Nicotine dependence, cigarettes, uncomplicated
CPT/HCPCS: 33228; 36415; 80048; 85025; 85610; C1785; J0690; J2250; J3010; J7040